=== PATIENT | male | born 1995 | race Caucasian/White ===

== ENCOUNTER 2018-10-05 20:26 | Emergency (ER) | payer BC ==
[2018-10-05 21:11] VITALS: BP 136/78; PULSE 78; RESP 20; TEMP 98.6
--- NOTE | 2018-10-05 21:32 | ED ---
Lower Extremity Injury HPI - General Chief Complaint: Extremity Injury, Lower Stated Complaint: Rt foot injury Time Seen by Provider: 10/05/18 21:21 Source: patient Mode of arrival: wheelchair Limitations: no limitations - History of Present Illness Initial Comments: Patient is a 22-year-old male presenting to emergency Department with right foot pain x today. Patient states he was playing basketball and took a hard step forward and felt pain in the right foot. Pain with weightbearing. No other complaints at this time. Patient admits to fracturing his fifth metatarsal about 4 years ago and states this pain is similar. - Related Data Home Medications Medication Instructions Recorded Confirmed Loratadine-Pseudoeph 10-240 mg 1 each PO DAILY 10/05/18 10/05/18 [Claritin-D 24 Hr] Allergies Allergy/AdvReac Type Severity Reaction Status Date / Time No Known Allergies Allergy Verified 10/05/18 21:11 Review of Systems ROS Statement: Those systems with pertinent positive or pertinent negative responses have been documented in the HPI. ROS Other: All systems not noted in ROS Statement are negative. Past Medical History Past Medical History: No Reported History History of Any Multi-Drug Resistant Organisms: None Reported Past Surgical History: Tonsillectomy Past Psychological History: No Psychological Hx Reported Smoking Status: Current some day smoker Past Alcohol Use History: Daily Past Drug Use History: None Reported General Exam - General Exam Comments Initial Comments: GENERAL: Well-appearing, well-nourished and in no acute distress. HEAD: Atraumatic, normocephalic. EYES: Pupils equal round and reactive to light, extraocular movements intact, sclera anicteric, conjunctiva are normal. ENT: TMs normal, nares patent, oropharynx clear without exudates. Moist mucous membranes. NECK: Normal range of motion, supple without lymphadenopathy or JVD. LUNGS: Breath sounds clear to auscultation bilaterally and equal. No wheezes rales or rhonchi. HEART: Regular rate and rhythm without murmurs, rubs or gallops. ABDOMEN: Soft, nontender, normoactive bowel sounds. No guarding, no rebound. No masses appreciated. : Deferred EXTREMITIES: Pain with palpation of the right lateral and dorsal foot. Mild edema present. Patient has full ankle range of motion. Pain with foot inversion and eversion. Neurovascular intact. Sensation equal bilateral. NEUROLOGICAL: Cranial nerves II through XII grossly intact. Normal speech, normal gait. PSYCH: Normal mood, normal affect. SKIN: Warm, Dry, normal turgor, no rashes or lesions noted. Limitations: no limitations Course Vital Signs 10/05/18 21:06 Temperature 98.6 F Pulse Rate 78 Respiratory 20 Rate Blood Pressure 136/78 O2 Sat by Pulse 97 Oximetry Procedures - Orthopedic Splinting/Casting Injury #1 Side: right Lower Extremity Injury Location: foot (Right foot) Lower Extremity Immobilizer: posterior splint, Joao wrap Additional Comments: Patient given prescription for crutches. Medical Decision Making - Medical Decision Making Patient is a 22-year-old male presenting to the ER with right foot pain times today. Patient states he was playing basketball and took a large step forward and felt instant pain in his right foot. X-ray reveals nondisplaced right fourth metatarsal fracture. Patient was placed in short leg splint and nonweightbearing until orthopedic follow-up on Monday. Patient was counseled on RICE. Patient will be discharged home with orthopedic follow-up with Dr. Lantigua. Patient is okay with the plans. Case discussed with Dr. Chua. Return parameters were discussed. Disposition Clinical Impression: Nondisplaced fracture of fourth metatarsal bone, right foot, initial encounter for closed fracture Disposition: HOME SELF-CARE Condition: Stable Instructions (If sedation given, give patient instructions): Foot Fracture in Adults (ED) Additional Instructions: Please return to the Emergency Department if symptoms worsen or any other concerns. Stay nonweightbearing until with a follow-up on Monday with Dr. Lantigua. manav Walsh, amxi. Is patient prescribed a controlled substance at d/c from ED?: No Referrals: None,Stated [Primary Care Provider] - 1-2 days César Lantigua MD [STAFF PHYSICIAN] - 1-2 days
--- NOTE | 2018-10-05 21:51 | XR ---
PROCEDURE: XR foot complete RT - 3V DATE AND TIME: 10/05/2018 9:46 PM CLINICAL INDICATION: PHH; Pain TECHNIQUE: Department protocol COMPARISON: None FINDINGS: There is a transverse lucency at the proximal shaft of the fourth metatarsal, consistent wi th nondisplaced fracture. There are no other fractures. No malalignment. IMPRESSION: Positive for fourth metatarsal nondisplaced fracture.
--- NOTE | 2018-10-05 21:52 | XR ---
PROCEDURE: XR ankle complete RT - 3V DATE AND TIME: 10/05/2018 9:46 PM CLINICAL INDICATION: PHH; Pain TECHNIQUE: Department protocol COMPARISON: None FINDINGS: There is no fracture or malalignment. Soft tissues show swelling. IMPRESSION: NO ACUTE PROCESS.
== END 2018-10-05 22:33 | disposition home or self-care (01) ==
LOC: EC 20:26
DX: S92.344A Nondisplaced fracture of fourth metatarsal bone, right foot, initial encounter for closed fracture (principal); F17.200 Nicotine dependence, unspecified, uncomplicated; X58.XXXA Exposure to other specified factors, initial encounter; Y93.67 Activity, basketball; Y92.009 Unspecified place in unspecified non-institutional (private) residence as the place of occurrence of the external cause
CPT/HCPCS: 29515; 99283